=== PATIENT | female | born 1995 | race Caucasian/White ===

== ENCOUNTER 2024-01-05 22:48 | Emergency (ER) | payer OTHER, SELFPAY ==
[2024-01-05 22:58] VITALS: BP 142/96
[2024-01-05 23:02] VITALS: BMI 24.0
[2024-01-05] MEDS: MAGNESIUM SULFATE 50 IV (23:10)
[2024-01-05] MEDS: VENTOLIN NEBULES 10 MG INH (23:10)
[2024-01-05] MEDS: ATROVENT NEBULES 1 MG INH (23:10)
[2024-01-05] MEDS: SOLU-MEDROL PF 60 MG IV (23:11)
--- NOTE | 2024-01-05 23:18 | EDRN ---
The patient arrived to room 23 via wheel chair. The patient is SOB, tachypnic, tachycardic, unable to talk in full sentences, tripoding, has audible wheezes. The patient has insp. and exp. wheezing throught lung poole. Randy RAO arrived to the
room at the same time as the patient. The patient was started on a hour long neb. IV placed and medications given.
[2024-01-05 23:20] LABS: % Basophils 1.1 % (0-2); % Eosinophils 8.9 % (0-6); % Immature Granulocytes 0.3 % (0-0.5); % Lymphocytes 24.6 % (20.5-51.1); % Neutrophils 59.1 % (42.2-75.2); Absolute Basophils 0.2 10^3/uL (0-0.2); Absolute Eosinophils 1.3 10^3/uL (0-0.7); Absolute Lymphocytes 3.6 10^3/uL (1.2-3.4); Absolute Monocytes 0.9 10^3/uL (0.1-0.6); Absolute Neutrophils 8.6 10^3/uL (1.4-6.5); Hematocrit 39.8 % (37.0-47.0); Mean Corp Hgb Conc. 35.2 g/dL (33.0-37.0); Mean Corpuscular Hgb 29.7 pg (27.0-31.0); Mean Corpuscular Volume 84.3 fL (81.0-99.0); Mean Platelet Volume 9.2 fL (7.4-10.4); Nucleated Red Blood Cells % 0 %; Platelet Count 331 10^3/uL (130-400); Red Blood Cell Count 4.72 10^6/uL (4.20-5.40); Red Cell Dist. Width 12.2 % (11.5-14.5); White Blood Cell Count 14.6 10^3/uL (4.8-10.8)
[2024-01-05 23:26] VITALS: BP 121/76
[2024-01-05 23:35] VITALS: BP 121/76
[2024-01-05 23:40] LABS: HCG, Serum Qualitative Screen Negative
[2024-01-05 23:43] LABS: ALT (SGPT) 15 U/L (0-35); AST (SGOT) 26 U/L (14-36); Albumin 4.2 g/dl (3.5-5.0); Alkaline Phosphatase 60 U/L (38-126); Blood Urea Nitrogen 12 mg/dl (7-17); Calcium 9.3 mg/dl (8.4-10.2); Carbon Dioxide 22 mmol/L (22-30); Chloride 108 mmol/L (98-107); Estimated Creatinine Clearance 108 ml/min; Glucose 102 mg/dl (70-99); Sodium 137 mmol/L (135-145); Total Bilirubin 0.6 mg/dl (0.2-1.3); eGFR > 60.00
[2024-01-06] VITALS: BP 125/82
[2024-01-06 01:00] VITALS: BP 115/72
--- NOTE | 2024-01-06 01:30 | ED.GENMED ---
History of Present Illness
General
Chief Complaint: Breathing Problem
Time Seen by Provider: 01/05/24 23:11
Travel History
Have you had any contact with someone who has COVID-19?: No
Do you have any symptoms of coronavirus? Fever > 100 degrees, chills, cough, shortness of breath, sore throat, loss of taste or smell, muscle aches, or headache?: No
History of Present Illness
History of Present Illness:
HPI: Patient has a history of asthma and feels that this is a exacerbation of her asthma. She has never required intubation but has been seen in the ED in the past for similar episode. She has no lower extremity edema or calf tenderness.
EXAM:
GENERAL: Well appearing in no distress, mild respiratory distress
HEENT: Moist oral mucosa
CARDIOVASCULAR: No murmurs, normal heart rate, regular rhythm, No chest wall tenderness
PULMONARY: Mild respiratory distress, breath sounds are equally decreased with scant wheeze
ABDOMEN: Soft with no peritoneal signs, no tenderness
NEUROLOGIC: Excellent strength all extremities, no coordination deficits
PSYCHIATRIC: Appropriate mental status, normal insight and judgement
EXTREMITIES: Nontender, no edema, moves all extremities equally
SKIN: No rash, no lesions
TIME OF INITIAL ENCOUNTER: 11 PM
NUMBER AND COMPLEXITY OF PROBLEMS ADDRESSED AT THE ENCOUNTER
� Chronic conditions affecting care: Asthma, anxiety
� Acute Exacerbation and/or Progression of Chronic Illness: This is an acute exacerbation of a chronic problem
� Differential Diagnosis includes: Asthma exacerbation, status asthmaticus, pneumonia
AMOUNT AND/OR COMPLEXITY OF DATA TO BE REVIEWED AND ANALYZED
� I performed an independent evaluation of and my interpretation is:
EKG:
CT:
X-rays: Chest x-ray personally reviewed and is somewhat hyperinflated but no evidence of consolidation
Laboratory Studies: White count 14.6, chemistries relatively unremarkable, hCG negative
Other:
� Review of other/old records: The patient was seen here with a similar episode approximately 5 months ago
� Clinical information was obtained by an independent historian: I spoke to the at bedside
� Prescriptions/Medications Considered but not given:
� Further testing considered but not performed:
RISK OF COMPLICATIONS AND/OR MORBIDITY OR MORTALITY OF PATIENT MANAGEMENT
� Social determinants of health affecting care: Lives at home
� Discussion with other providers:
� Escalation of care including admission/observation vs risk of discharge considered: The patient was given IV steroids, IV magnesium, and DuoNebs. On reassessment at 1:30 AM, the patient feels markedly improved. She is in no
respiratory distress and feels comfortable with going home.
Past History
Past History
ED Past Medical History: Psychiatric (anxiety)
ED Past Surgical History: None
Social History
Tobacco: Non-smoker
Alcohol: None
Drug: None
Personal: Single
Living: with family
Phy Exam
Physical Exam
Physical Exam:
See HPI
Course
Orders/Labs/Results
Orders:
Orders
01/05/24 23:02
Albuterol Sulfate [Ventolin Nebules] 10 mg INH R NOW STA
Ipratropium Nebs [Atrovent Nebules] 1 mg INH R NOW STA
Magnesium Sulfate 2 Gram/50 ml [Magnesium Sulfate] 2 gram in 50 ml IV NOW
MethylPREDNISolone PF [Solu-Medrol Pf] 60 mg IV NOW STA
01/05/24 23:03
Albuterol Nebs [Ventolin Nebules] 2.5 mg .ROUTE .[facility] ONE
Test Result ONCE
01/05/24 23:14
Complete Blood Count/With Diff Urgent
Comprehensive Metabolic Panel Urgent
HCG, Serum Qualitative Screen Urgent
01/06/24 00:01
CR Chest Portable - 1 View Urgent
Reason For Exam: SOB
Reason Study Needs to be Portable: Patient Unstable
Abnormal Lab Results
01/05/24
23:14
WBC 14.6 H 10^3/uL
(4.8-10.8)
Absolute Neuts (auto) 8.6 H 10^3/uL
(1.4-6.5)
Absolute Lymphs (auto) 3.6 H 10^3/uL
(1.2-3.4)
Absolute Monos (auto) 0.9 H 10^3/uL
(0.1-0.6)
Absolute Eos (auto) 1.3 H 10^3/uL
(0-0.7)
Eosinophils % 8.9 H %
(0-6)
Chloride 108 H mmol/L
(98-107)
Glucose 102 H mg/dl
(70-99)
01/05/24 23:14
01/05/24 23:14
Vital Signs
Initial and Last Documented VS:
Initial Vital Signs
Temp Pulse Resp BP Pulse Ox
97.4 F 118 28 142/96 90
01/05/24 22:58 01/05/24 22:58 01/05/24 22:58 01/05/24 22:58 01/05/24 22:58
Last Documented Vital Signs
Temp Pulse Resp BP Pulse Ox
97.4 F 92 17 115/72 96
01/05/24 22:58 01/06/24 01:00 01/06/24 01:00 01/06/24 01:00 01/06/24 01:00
*Critical Care Note
Total Time (30-74mins, 75-104mins- exclusive of procedures): Not Applicable
ED Attending Note
-
Portions of this chart may have been created with voice recognition software.� Occasional wrong word or��sound alike� substitutions may have occurred due to the inherent limitations of voice recognition software.
Discharge Plan
Departure
Patient Disposition: Home (Routine Discharge)
Date of Disposition: 01/06/24
Time of Disposition: 01:40
Patient with high blood pressure during this ER visit?: Yes
Discharge Problem:
Asthma
Instructions: Asthma, Adult (DC), BLOOD PRESSURE
Prescriptions:
New
prednisone 50 mg tablet
50 mg PO DAILY Qty: 4 0RF
albuterol sulfate 2.5 mg /3 mL (0.083 %) solution for nebulization
2.5 mg inhalation Q6H PRN (Reason: shortness of breath or wheezing) Qty: 90 0RF
No Action
Visine 0.05 % Drops
2 drp BOTH EYES DAILYPRN PRN (Reason: eye irritation)
ibuprofen 200 mg Tablet
600 mg PO BIDPRN PRN (Reason: mild pain)
albuterol sulfate 90 mcg/actuation Hfa Aerosol Inhaler
2 puff INHALATION R Q6HPRN PRN (Reason: wheezing)
Unknown Nebulizer
1 inh inhalation R DAILYPRN PRN (Reason: sob)
Patient Comments:
01/05/2024, pt. states to use a 'sulfate nebulizer' that she gets through [employer].
Referrals:
Mini Lutz, DO [Family Provider] -
Activity Restrictions/Additional Instructions:
I sent a prescription for both nebulized albuterol and prednisone. Return here if worse.
Interventions
Interventions:
*Risk Screen - Suicide Last Done: 01/05/24 23:22
*General Assessment Last Done: 01/05/24 23:17
*Neglect/Abuse Screening Last Done: 01/05/24 23:18
ED- Fall Risk Assessment Last Done: 01/05/24 23:23
*ED COVID-19 Vaccine History Last Done: 01/05/24 23:17
ED- Cardiac Assessment Last Done: 01/05/24 23:23
ED- Pulmonary Assessment Last Done: 01/05/24 23:23
Discharge Date and Time
Print Language: BULGARIAN
== END 2024-01-06 01:51 | disposition home or self-care (01) ==
LOC: EMR 22:48
PROVIDERS: Physician Assistant; EMERGENCY PHYSICIAN Emergency Medicine; FAMILY PHYSICIAN Family Medicine
DX: J45.901 Unspecified asthma with (acute) exacerbation (principal); R03.0 Elevated blood-pressure reading, without diagnosis of hypertension; F41.9 Anxiety disorder, unspecified
CPT/HCPCS: 99284; 96374; 96375; 94644; 71045; 80053; 84703; 85025

== ENCOUNTER 2025-01-24 18:14 | Emergency (ER) | payer OTHER, SELFPAY ==
[2025-01-24 18:17] VITALS: BP 131/93
[2025-01-24] MEDS: DUONEB 3 ML INH ×2 (19:08→20:26)
--- NOTE | 2025-01-24 20:22 | ED.GENMED ---
History of Present Illness
General
Chief Complaint: Breathing Problem
Source: patient
Exam Limitations: none
Time Seen by Provider: 01/24/25 19:46
History of Present Illness
History of Present Illness:
29yoF with a history of asthma and nasal polyps presenting for evaluation of an asthma exacerbation. Symptoms have been ongoing for the past 2 days. She reports chest tightness, shortness of breath, and wheezing. She has been using her home
albuterol and Symbicort without any relief so decided to come to the ED. She has been moving into a new home in the heat for the past few days she believes is her trigger. No prior hospitalizations for asthma. No tobacco use.
Past History
Past History
ED Past Medical History: Psychiatric (anxiety)
ED Past Surgical History: None
Social History
Tobacco: Non-smoker
Alcohol: None
Drug: None
Personal: Single
Living: with family
Phy Exam
General Physical Exam
General Presentation: well appearing and no apparent distress
General Skin: warm and dry
General Habitus: normal
General Mental: alert
ENT Exam
ENT Exam: normocephalic
Cardiovascular Exam
Cardiovascular Exam: regular rate/rhythm
Pulmonary Exam
Pulmonary Exam: no respiratory distress, no rales, no crackles, no stridor and other (Mild inspiratory and expiratory wheezing. Speaking in full sentences.)
Neurological Exam
Neurological Exam: alert
Isaac Coma Scale
Eye Opening: Spontaneous
Verbal Response: Oriented
Motor Response: Obeys Commands
GCS Total Score: 15
Skin Exam
Skin Exam: normal color and warm/dry
Psychiatric Exam
Psychiatric Exam: normal mood/affect
Course
Orders/Labs/Results
Orders:
Orders
01/24/25 18:56
Ipratropium/Albuterol Sulfate [Duoneb] 3 ml .ROUTE .[facility] ONE
01/24/25 19:08
Ipratropium/Albuterol Sulfate [Duoneb] 3 ml INH R NOW ONE
01/24/25 20:21
Ipratropium/Albuterol Sulfate [Duoneb] 3 ml INH R NOW STA
01/24/25 20:26
Ipratropium/Albuterol Sulfate [Duoneb] 3 ml .ROUTE .STK-MED ONE
Vital Signs
Initial and Last Documented VS:
Initial Vital Signs
Temp Pulse Resp BP Pulse Ox
97.7 F 111 24 131/93 94
01/24/25 18:17 01/24/25 18:17 01/24/25 18:17 01/24/25 18:17 01/24/25 18:17
Last Documented Vital Signs
Temp Pulse Resp BP Pulse Ox
97.7 F 102 22 119/72 96
01/24/25 18:17 01/24/25 21:25 01/24/25 21:25 01/24/25 21:25 01/24/25 21:25
MDM/Problems Addressed
Differential Diagnosis Includes:
29yoF here with an asthma exacerbation x 2 days. Received a DuoNeb prior to initial exam and is feeling improved. Mild wheezing noted on exam without signs of respiratory distress. Differential diagnosis includes: Asthma exacerbation, bronchitis,
seasonal allergies, no clinical evidence of pneumonia
Patient given second DuoNeb. Patient mostly asymptomatic on reassessment with only faint wheezing remaining. Patient requesting discharge. She was started on a course of prednisone. Advised follow-up with PCP and ED return precautions were
reviewed. Patient discharged in stable condition.
*Pulse Oximetry
SaO2: 94
Oxygen Mode of Delivery: Room air
Patient hypoxic: no (96%)
*Critical Care Note
Total Time (30-74mins, 75-104mins- exclusive of procedures): Not Applicable
ED Attending Note
-
Portions of this chart may have been created with voice recognition software.� Occasional wrong word or��sound alike� substitutions may have occurred due to the inherent limitations of voice recognition software.
Discharge Plan
Departure
Patient Disposition: Home (Routine Discharge)
Date of Disposition: 01/24/25
Time of Disposition: 21:21
Patient with high blood pressure during this ER visit?: No
Discharge Problem:
Acute asthma exacerbation
Instructions: Asthma, Adult (DC)
Prescriptions:
New
prednisone 50 mg tablet
50 mg PO DAILY Qty: 5 0RF
No Action
Visine 0.05 % Drops
2 drp BOTH EYES DAILYPRN PRN (Reason: eye irritation)
ibuprofen 200 mg Tablet
600 mg PO BIDPRN PRN (Reason: mild pain)
albuterol sulfate 90 mcg/actuation Hfa Aerosol Inhaler
2 puff INHALATION R Q6HPRN PRN (Reason: wheezing)
Unknown Nebulizer
1 inh inhalation R DAILYPRN PRN (Reason: sob)
Patient Comments:
01/05/2024, pt. states to use a 'sulfate nebulizer' that she gets through [employer].
prednisone 50 mg tablet
50 mg PO DAILY Qty: 4 0RF
albuterol sulfate 2.5 mg /3 mL (0.083 %) solution for nebulization
2.5 mg inhalation Q6H PRN (Reason: shortness of breath or wheezing) Qty: 90 0RF
Referrals:
Honey Garcia CRNP [Family Provider]
Activity Restrictions/Additional Instructions:
Take prednisone as prescribed. Continue to use albuterol as needed.
Please follow-up with your family doctor this week. Return to the ER with any worsening symptoms.
Interventions
Interventions:
*Risk Screen - Suicide Last Done: 01/24/25 20:28
*General Assessment Last Done: 01/24/25 20:28
*Neglect/Abuse Screening Last Done: 01/24/25 20:28
*ED- Fall Risk Assessment Last Done: 01/24/25 20:28
*ED COVID-19 Vaccine History Last Done: 01/24/25 20:28
*Nursing Disposition Last Done: 01/24/25 21:33
ED- Cardiac Assessment Last Done: 01/24/25 20:28
ED- Pulmonary Assessment Last Done: 01/24/25 20:28
Discharge Date and Time
Discharge Date/Time: 01/24/25 21:35
Print Language: TRINIDADIAN
[2025-01-24 21:25] VITALS: BP 119/72
== END 2025-01-24 21:35 | disposition home or self-care (01) ==
LOC: EMR 18:14
PROVIDERS: EMERGENCY PHYSICIAN Student in an Organized Health Care Education/Training Program; FAMILY PHYSICIAN Nurse Practitioner Family
DX: J45.901 Unspecified asthma with (acute) exacerbation (principal)
CPT/HCPCS: 94640; 99284